=== PATIENT | female | born 1960 | race Hispanic/Latino ===

== ENCOUNTER 2017-09-17 05:03 | Inpatient (IN) | payer MEDICAID ==
[~2017-09-17] VITALS: Ht 157.5 cm; Wt 42.7 kg
[~2017-09-17 05:03] MED LIST: ACET-66 PO; ADV500 IH; ALBU8.5H8 IH; AMLO10TA2 PO; DEXL60CA3 PO; DICY20TA11 PO; DIPH25CA85 PO; ONDA8TAB12 PO
[2017-09-17] MEDS ORDERED: DiphenhydrAMINE HCL 50 MG/ML VIAL ONE (05:24)
[2017-09-17 05:55] LABS: BASOPHILS % (AUTO) 0.6 % (0.0-5.0); EOSINOPHILS % (AUTO) 1.4 % (0.0-8.0); HEMATOCRIT 39.9 % (36-48); LYMPHOCYTES % (AUTO) 21.1 % (21.0-51.0); MEAN CORPUSCULAR HEMOGLOBIN 31.1 pg (27.0-33.0); MEAN CORPUSCULAR HGB CONC 35.2 g/dL (32.0-36.0); MEAN CORPUSCULAR VOLUME 88.5 fL (79-99); MONOCYTES % (AUTO) 5.2 % (3.0-13.0); NEUTROPHILS % (AUTO) 71.7 % (40.0-77.0); PLATELET COUNT (AUTO) 260 K/uL (130-400); RED BLOOD CELL COUNT(AUTO) 4.51 MIL/uL (4.00-5.50); RED CELL DISTRIBUTION WIDTH 13.4 % (11.0-15.5); WHITE BLOOD COUNT (AUTO) 5.4 K/uL (4.8-10.8)
[2017-09-17] MEDS ORDERED: IPRATROPIUM/ALBUTEROL SULFATE 3 ML SOLUTION IH ONE (05:55)
[2017-09-17 06:03] LABS: ALBUMIN 4.1 g/dL (3.5-5.0); BILIRUBIN,TOTAL 0.7 mg/dL (0.2-1.0); CREATININE 1.6 mg/dL (0.5-1.5); TOTAL PROTEIN, SERUM 8.3 g/dL (6.0-8.3)
[2017-09-17 06:11] LABS: POTASSIUM 2.5 mmol/L (3.5-5.1)
[2017-09-17] MEDS ORDERED: POTASSIUM BICARB/CIT AC 25 MEQ TABLET.EFF ONE ×3 (06:34→14:38)
[2017-09-17] MEDS ORDERED: NS-20 MEQ KCL 1000ML 1,000 ML IV ONE (09:51)
[2017-09-17] MEDS ORDERED: POTASSIUM CHLORIDE 20MEQ/100ML 100 ML IV PRN ×3 (10:15→15:45)
[2017-09-17] MEDS ORDERED: LIDOCAINE HCL-MPF 1% 2ML VIAL IJ PRN (10:15)
[2017-09-17] MEDS ORDERED: POTASSIUM CHLORIDE 10% ELIXIR 20 MEQ/15 ML UDCUP PO PRN (10:15)
[2017-09-17 16:21] VITALS: BP 97/52
[2017-09-17 18:10] LABS: APPEARANCE,URINE TURBID (CLEAR); BILIRUBIN,URINE SMALL (NEGATIVE); COLOR,URINE YELLOW (YELLOW); GLUCOSE, URINE (UA) NEGATIVE (NEGATIVE); KETONES,URINE 5 mg/dL (NEGATIVE); LEUKOCYTE ESTERASE ,URINE MODERATE (NEGATIVE); NITRATE,URINE NEGATIVE (NEGATIVE); OCCULT BLOOD,URINE LARGE (NEGATIVE); PH,URINE 5.5 (5.0-8.0); PROTEIN,URINE 30 (NEGATIVE)
[2017-09-17 18:20] LABS: WBC,URINE >100 /HPF (0-1)
[2017-09-17 18:21] LABS: BACTERIA,URINE Rare /HPF (None Seen); SQUAMOUS EPITHELIAL CELL,UR Rare /HPF (0-2)
[2017-09-17 19:15] VITALS: BP 117/57
[2017-09-17] MEDS: SODIUM CHLORIDE 0.9% 1000ML 1,000 ML IV SCH ×2 (20:15→22:21)
[2017-09-17 23:19] VITALS: BP 106/58
[2017-09-18 03:44] VITALS: BP 109/56
[2017-09-18] MEDS: SODIUM CHLORIDE 0.9% 1000ML 1,000 ML IV SCH ×2 (06:15→11:27)
[2017-09-18 06:49] LABS: HEMATOCRIT 37.5 % (36-48); MEAN CORPUSCULAR HEMOGLOBIN 31.5 pg (27.0-33.0); MEAN CORPUSCULAR HGB CONC 35.2 g/dL (32.0-36.0); MEAN CORPUSCULAR VOLUME 89.5 fL (79-99); PLATELET COUNT (AUTO) 237 K/uL (130-400); RED BLOOD CELL COUNT(AUTO) 4.19 MIL/uL (4.00-5.50); RED CELL DISTRIBUTION WIDTH 13.7 % (11.0-15.5); WHITE BLOOD COUNT (AUTO) 3.5 K/uL (4.8-10.8)
[2017-09-18 06:50] LABS: MAGNESIUM 2.1 mg/dL (1.80-2.40); POTASSIUM 3.4 mmol/L (3.5-5.1)
[2017-09-18 08:21] VITALS: BP 100/55
[2017-09-18] MEDS ORDERED: NITROGLYCERIN 1GM/1 INCH PACKET TD PRN (10:45)
[2017-09-18] MEDS: CEFTRIAXONE SODIUM 1 GM IV SCH (11:09)
[2017-09-18 11:37] VITALS: BP 90/54
[2017-09-18 11:37] LABS: CREATINE KINASE MB 1.5 ng/mL (0.5-3.6); CREATINE KINASE, TOTAL 371 U/L (21-232); MYOGLOBIN 65 ng/mL (10-92); TROPONIN I < 0.04 ng/mL (0.00-0.06)
[2017-09-18 15:52] VITALS: BP 97/52
[2017-09-18] MEDS: REGADENOSON 0.4 MG/5 ML PF SYG IVP SCH (16:15)
[2017-09-18] MEDS: ACETAMINOPHEN EXTRA STRENGTH 500 MG TABLET PO PRN (17:47)
[2017-09-18 19:23] VITALS: BP 132/83
[2017-09-18 19:47] LABS: CREATINE KINASE MB 1.7 ng/mL (0.5-3.6); CREATINE KINASE, TOTAL 368 U/L (21-232); MYOGLOBIN 56 ng/mL (10-92); TROPONIN I < 0.04 ng/mL (0.00-0.06)
[2017-09-18 23:14] VITALS: BP 141/76
[2017-09-18 23:56] LABS: AMPHET/METH SCREEN,URINE NEGATIVE (NEGATIVE); BARBITURATE SCREEN, URINE NEGATIVE (NEGATIVE); BENZODIAZEPINES SCREEN,URINE NEGATIVE (NEGATIVE); CANNABINOID SCREEN,URINE POSITIVE (NEGATIVE); COCAINE SCREEN,URINE POSITIVE (NEGATIVE); OPIATE SCREEN,URINE NEGATIVE (NEGATIVE); PHENCYCLIDINE SCREEN,URINE NEGATIVE (NEGATIVE)
[2017-09-19 03:25] VITALS: BP 119/64
[2017-09-19 03:37] LABS: CREATININE 0.8 mg/dL (0.5-1.5); POTASSIUM 3.3 mmol/L (3.5-5.1)
[2017-09-19 04:14] LABS: CREATINE KINASE MB 1.4 ng/mL (0.5-3.6); CREATINE KINASE, TOTAL 347 U/L (21-232); MYOGLOBIN 38 ng/mL (10-92); TROPONIN I < 0.04 ng/mL (0.00-0.06)
[2017-09-19 08:26] VITALS: BP 125/65
[2017-09-19] MEDS: CEFTRIAXONE SODIUM 1 GM IV SCH (09:04)
[2017-09-19] MEDS: SODIUM CHLORIDE 0.9% 1000ML 1,000 ML IV SCH (09:06)
[2017-09-19] MEDS: ACETAMINOPHEN EXTRA STRENGTH 500 MG TABLET PO PRN (14:50)
[2017-09-19] MEDS: POTASSIUM CHLORIDE 20 MEQ ERTAB PO PRN (14:51)
[2017-09-19 16:00] VITALS: BP 145/83
[2017-09-19] MEDS: REGADENOSON 0.4 MG/5 ML PF SYG IVP SCH (17:22)
[2017-09-19 19:20] VITALS: BP 150/97
[2017-09-19 23:10] VITALS: BP 145/73
[2017-09-20] MEDS: POTASSIUM CHLORIDE 20 MEQ ERTAB PO PRN ×2 (00:44→04:18)
[2017-09-20 03:15] VITALS: BP 147/84
[2017-09-20] MEDS ORDERED: PANT40TA25 PO (04:03)
[2017-09-20] MEDS ORDERED: ALBU6.7H IH (04:03)
[2017-09-20] MEDS ORDERED: SUCR1TAB2 PO (04:03)
[2017-09-20] MEDS ORDERED: ALPR-412 PO (04:03)
[2017-09-20] MEDS ORDERED: ONDA8TAB11 PO (04:03)
[2017-09-20] MEDS ORDERED: HYDR-4068 PO (04:03)
[2017-09-20 08:05] VITALS: BP 148/69
[2017-09-20] MEDS ORDERED: DICY20TA11 PO (10:10)
[2017-09-20] MEDS: CEFTRIAXONE SODIUM 1 GM IV SCH (10:22)
[2017-09-20 11:53] VITALS: BP 156/85
== END 2017-09-20 14:55 | disposition home or self-care (01) | DRG 463 ==
LOC: EDH 05:03 → EDHIP 05:04 → 3CH 15:03
PROVIDERS: ADMIT Family Medicine; ATTEND Family Medicine
PROC: 5A09357 Assistance with Respiratory Ventilation, Less than 24 Consecutive Hours, Continuous Positive Airway Pressure (ICD-10-PCS; principal; 2017-09-20)
DX: N39.0 Urinary tract infection, site not specified (principal); I24.9 Acute ischemic heart disease, unspecified; I11.9 Hypertensive heart disease without heart failure; E87.6 Hypokalemia; I25.10 Atherosclerotic heart disease of native coronary artery without angina pectoris; R06.01 Orthopnea; J44.9 Chronic obstructive pulmonary disease, unspecified; F12.90 Cannabis use, unspecified, uncomplicated; K21.9 Gastro-esophageal reflux disease without esophagitis; M81.0 Age-related osteoporosis without current pathological fracture; Z72.0 Tobacco use; Z82.49 Family history of ischemic heart disease and other diseases of the circulatory system
CPT/HCPCS: 36415; 78452; 80048; 80053; 80305; 81001; 82550; 82553; 83735; 83874; 84132; 84484; 85025; 85027; 93005; 93017; 93306; 94640; 96374; A4218; A9500; J0696; J1200; J2785; J3480; J3490; J7030

== ENCOUNTER 2018-02-11 14:35 | Emergency (ER) | payer MEDICAID ==
[~2018-02-11 14:35] MED LIST changes: +ALBU6.7H IH; -ALBU8.5H8 IH; +ALPR-412 PO; -AMLO10TA2 PO; +AMLO10TA6 PO; -DIPH25CA85 PO; +HYDR-4068 PO; +ONDA8TAB11 PO; -ONDA8TAB12 PO; +PANT40TA25 PO
[2018-02-11 14:57] LABS: BASOPHILS % (AUTO) 0.5 % (0.0-5.0); EOSINOPHILS % (AUTO) 2.1 % (0.0-8.0); HEMATOCRIT 36.8 % (36-48); LYMPHOCYTES % (AUTO) 17.9 % (21.0-51.0); MEAN CORPUSCULAR HEMOGLOBIN 30.7 pg (27.0-33.0); MEAN CORPUSCULAR HGB CONC 33.4 g/dL (32.0-36.0); MEAN CORPUSCULAR VOLUME 91.8 fL (79-99); MONOCYTES % (AUTO) 6.2 % (3.0-13.0); NEUTROPHILS % (AUTO) 73.3 % (40.0-77.0); PLATELET COUNT (AUTO) 267 K/uL (130-400); RED CELL DISTRIBUTION WIDTH 13.6 % (11.0-15.5); WHITE BLOOD COUNT (AUTO) 6.6 K/uL (4.8-10.8)
[2018-02-11 15:10] LABS: POTASSIUM 3.9 mmol/L (3.5-5.1)
[2018-02-11 15:11] LABS: INR 0.93 (0.85-1.15); PARTIAL THROMBOPLASTIN TIME 36.2 SEC (26.3-35.5); PROTHROMBIN TIME 9.8 SEC (9.6-11.6)
[2018-02-11 15:20] LABS: ALBUMIN 3.5 g/dL (3.5-5.0); BILIRUBIN,TOTAL 0.2 mg/dL (0.2-1.0)
== END 2018-02-11 15:42 | disposition left against medical advice (07) ==
LOC: EDH 14:35
DX: R07.89 Other chest pain (principal); R00.2 Palpitations; J44.9 Chronic obstructive pulmonary disease, unspecified; K21.9 Gastro-esophageal reflux disease without esophagitis; I10 Essential (primary) hypertension; I25.10 Atherosclerotic heart disease of native coronary artery without angina pectoris; F41.9 Anxiety disorder, unspecified; M81.0 Age-related osteoporosis without current pathological fracture; I25.2 Old myocardial infarction; Z91.041 Radiographic dye allergy status; Z88.8 Allergy status to other drugs, medicaments and biological substances; Z88.6 Allergy status to analgesic agent; Z90.710 Acquired absence of both cervix and uterus; Z90.49 Acquired absence of other specified parts of digestive tract; Z98.890 Other specified postprocedural states; Z72.0 Tobacco use
CPT/HCPCS: 36415; 71045; 80053; 82550; 83874; 84484; 85025; 85610; 85730; 93005; 94761

== ENCOUNTER 2018-02-16 17:05 | Observation (INO) | payer MEDICAID ==
[~2018-02-16] VITALS: Ht 157.5 cm; Wt 42.2 kg
[2018-02-16 17:42] LABS: BASOPHILS % (AUTO) 0.8 % (0.0-5.0); EOSINOPHILS % (AUTO) 0.7 % (0.0-8.0); HEMATOCRIT 34.6 % (36-48); LYMPHOCYTES % (AUTO) 29.2 % (21.0-51.0); MEAN CORPUSCULAR HEMOGLOBIN 31.8 pg (27.0-33.0); MEAN CORPUSCULAR HGB CONC 34.9 g/dL (32.0-36.0); MEAN CORPUSCULAR VOLUME 91.1 fL (79-99); MONOCYTES % (AUTO) 10.5 % (3.0-13.0); NEUTROPHILS % (AUTO) 58.8 % (40.0-77.0); NUCLEATED RED BLOOD CELLS 0.1 % (0.0-0.19); PLATELET COUNT (AUTO) 288 K/uL (130-400); RED CELL DISTRIBUTION WIDTH 13.7 % (11.0-15.5); WHITE BLOOD COUNT (AUTO) 5.6 K/uL (4.8-10.8)
[2018-02-16 17:53] LABS: CREATININE 1.2 mg/dL (0.5-1.5); POTASSIUM 3.2 mmol/L (3.5-5.1)
[2018-02-16 17:55] LABS: INR 0.98 (0.85-1.15); PARTIAL THROMBOPLASTIN TIME 31.5 SEC (26.3-35.5); PROTHROMBIN TIME 10.3 SEC (9.6-11.6)
[2018-02-16 17:57] LABS: ALBUMIN 3.8 g/dL (3.5-5.0); BILIRUBIN,TOTAL 0.7 mg/dL (0.2-1.0); TOTAL PROTEIN, SERUM 8.1 g/dL (6.0-8.3)
[2018-02-16 18:08] LABS: MYOGLOBIN 253 ng/mL (10-92); TROPONIN I < 0.04 ng/mL (0.00-0.06)
[2018-02-16] MEDS ORDERED: NITROGLYCERIN 1GM/1 INCH PACKET TD ONE (18:09)
[2018-02-16 18:11] LABS: CREATINE KINASE, TOTAL 416 U/L (21-232)
[2018-02-16] MEDS ORDERED: SODIUM CHLORIDE 0.9% 1000ML 1,000 ML IV ONE (18:38)
[2018-02-16] MEDS ORDERED: POTASSIUM BICARB/CIT AC 25 MEQ TABLET.EFF ONE (18:39)
[2018-02-16] MEDS ORDERED: POTASSIUM CHLORIDE 10% ELIXIR 20 MEQ/15 ML UDCUP PO PRN (19:45)
[2018-02-16] MEDS ORDERED: POTASSIUM CHLORIDE 20 MEQ ERTAB PO PRN (19:45)
[2018-02-16] MEDS ORDERED: POTASSIUM CHLORIDE 20MEQ/100ML 100 ML IV PRN (19:45)
[2018-02-16] MEDS ORDERED: LIDOCAINE HCL-MPF 1% 2ML VIAL IVP PRN (19:45)
[2018-02-16] MEDS ORDERED: MAGNESIUM 2GM PREMIX 50ML 50 ML IV PRN (19:45)
[2018-02-16 19:55] VITALS: BP 97/55
[2018-02-16] MEDS: SODIUM CHLORIDE 0.9% 1000ML 1,000 ML IV SCH (23:12)
[2018-02-16] MEDS ORDERED: ONDANSETRON HCL 4 MG/2 ML VIAL IV PRN (23:15)
[2018-02-16] MEDS ORDERED: ACETAMINOPHEN 325 MG TAB PO PRN (23:15)
[2018-02-16] MEDS ORDERED: NITROGLYCERIN 0.4 MG SL TAB SL PRN (23:15)
[2018-02-17] VITALS: BP 93/58
[2018-02-17 00:56] LABS: CREATINE KINASE, TOTAL 355 U/L (21-232); MYOGLOBIN 155 ng/mL (10-92); TROPONIN I < 0.04 ng/mL (0.00-0.06)
[2018-02-17 00:56] LABS: AMPHET/METH SCREEN,URINE NEGATIVE (NEGATIVE); BARBITURATE SCREEN, URINE NEGATIVE (NEGATIVE); BENZODIAZEPINES SCREEN,URINE NEGATIVE (NEGATIVE); CANNABINOID SCREEN,URINE POSITIVE (NEGATIVE); COCAINE SCREEN,URINE POSITIVE (NEGATIVE); OPIATE SCREEN,URINE NEGATIVE (NEGATIVE); PHENCYCLIDINE SCREEN,URINE NEGATIVE (NEGATIVE)
[2018-02-17] MEDS: IPRATROPIUM/ALBUTEROL SULFATE 3 ML SOLUTION IH SCH ×5 (02:02→18:12)
[2018-02-17 04:00] VITALS: BP 109/54
[2018-02-17 06:03] LABS: BASOPHILS % (AUTO) 0.7 % (0.0-5.0); EOSINOPHILS % (AUTO) 2.9 % (0.0-8.0); HEMATOCRIT 32.9 % (36-48); LYMPHOCYTES % (AUTO) 41.9 % (21.0-51.0); MEAN CORPUSCULAR HEMOGLOBIN 30.5 pg (27.0-33.0); MEAN CORPUSCULAR HGB CONC 33.5 g/dL (32.0-36.0); MEAN CORPUSCULAR VOLUME 91.1 fL (79-99); MONOCYTES % (AUTO) 11.4 % (3.0-13.0); NEUTROPHILS % (AUTO) 43.1 % (40.0-77.0); NUCLEATED RED BLOOD CELLS 0.1 % (0.0-0.19); PLATELET COUNT (AUTO) 237 K/uL (130-400); RED BLOOD CELL COUNT(AUTO) 3.62 MIL/uL (4.00-5.50); RED CELL DISTRIBUTION WIDTH 13.8 % (11.0-15.5); WHITE BLOOD COUNT (AUTO) 3.8 K/uL (4.8-10.8)
[2018-02-17 06:25] LABS: ALANINE AMINOTRANSFERASE 19 U/L (12-78); ALBUMIN 3.3 g/dL (3.5-5.0); ASPARTATE AMINOTRANSFERASE 34 U/L (10-37); BILIRUBIN,TOTAL 0.5 mg/dL (0.2-1.0); CARBON DIOXIDE 25 mmol/L (21-32); CHLORIDE 103 mmol/L (101-111); CHOLESTEROL 182 mg/dL (<200); CREATINE KINASE, TOTAL 319 U/L (21-232); GLOMERULAR FILTR. RATE CALC 61 mL/min (>60); GLUCOSE,RANDOM 77 mg/dL (70-105); HDL CHOLESTEROL 42 mg/dL (35-85); LDL DIRECT 127 mg/dL (0-99); MYOGLOBIN 90 ng/mL (10-92); POTASSIUM 3.9 mmol/L (3.5-5.1); SODIUM SERUM 139 mmol/L (136-145); TOTAL PROTEIN, SERUM 7.1 g/dL (6.0-8.3); TRIGLYCERIDES 71 mg/dL (30-200); TROPONIN I < 0.04 ng/mL (0.00-0.06); UREA NITROGEN, BLOOD 23 mg/dL (7-18)
[2018-02-17 08:00] VITALS: BP 108/59
[2018-02-17] MEDS ORDERED: PANTOPRAZOLE SODIUM 40 MG TABLET.DR PO SCH (09:00)
[2018-02-17] MEDS ORDERED: METOPROLOL TARTRATE 25 MG TAB PO SCH (09:00)
[2018-02-17] MEDS ORDERED: ENOXAPARIN SODIUM 30 MG/0.3 ML SQ SCH (09:00)
[2018-02-17] MEDS: SODIUM CHLORIDE 0.9% 1000ML 1,000 ML IV SCH (09:12)
[2018-02-17] MEDS ORDERED: ATOR40TA69 PO (10:47)
[2018-02-17 12:00] VITALS: BP 117/75
[2018-02-17 16:00] VITALS: BP 124/75
== END 2018-02-17 19:40 | disposition home or self-care (01) ==
LOC: EDH 17:05 → INTOOBSV 17:06 → EDHIP 17:06 → 3BH 19:55
PROVIDERS: ADMIT Internal Medicine; ATTEND Internal Medicine
DX: R07.89 Other chest pain (principal); J44.9 Chronic obstructive pulmonary disease, unspecified; R42 Dizziness and giddiness; E87.6 Hypokalemia; I10 Essential (primary) hypertension; I25.10 Atherosclerotic heart disease of native coronary artery without angina pectoris; K21.9 Gastro-esophageal reflux disease without esophagitis; M81.0 Age-related osteoporosis without current pathological fracture; F14.10 Cocaine abuse, uncomplicated; F12.20 Cannabis dependence, uncomplicated; F41.9 Anxiety disorder, unspecified; F17.200 Nicotine dependence, unspecified, uncomplicated
CPT/HCPCS: 36415 ×2; 71045; 80053 ×2; 80061; 80305; 82550 ×3; 83735 ×2; 83874 ×3; 84484 ×3; 85025 ×2; 85610; 85730; 93005 ×3; 94640 ×4; 94664; 96361 ×3; 96365; 96372; 99291; G0378 ×27; J1650; J3475; J7030; 96366